=== PATIENT | female | born 1990 | race Two or more races ===

== ENCOUNTER 2017-07-14 20:42 | Emergency (ER) | payer MEDICAID ==
[~2017-07-14] VITALS: Ht 139.7 cm; Wt 56.7 kg
[~2017-07-14 20:42] MED LIST: IBUPROFEN600 MG ORAL; KEFLEX500 MG ORAL; NORCO 5-325 TA1 EACH ORAL; ROBAXIN-750750 MG PO
[2017-07-14] MEDS ORDERED: NKM (20:54)
--- NOTE | 2017-07-14 21:33 | Emergency Room Report ---
History of Present Illness General Chief Complaint: Headache Source: Patient Present Illness HPI Patient presents with headache. She states this is like her usual migraine. She's had this for 4 days. She's had to call into her work. She's been vomiting. She had an aura at the beginning and now has some periods where she has some blurry vision. She's felt feverish but no documented temperature. She denies any cough sore throat diarrhea or dysuria. Her last period was 2 days ago. She's been taking Tylenol at home without any help. In the past she' s received morphine. Pain is 10/10, frontal and top of head, constant and not radiating. No fevers, weakness, trauma, thunderclap, neck stiffness/pain. Allergies: Coded Allergies: No Known Allergies (Unverified , 07/08/16) Patient History Past Medical History: see triage record Social History: Denies: smoking Social History Narrative works Last Menstrual Period: 2 days ago Now: No : 4 Reviewed Nursing Documentation: PMH: Agreed, PSxH: Agreed Nursing Documentation-PMH Past Medical History: No Stated History Review of Systems All Other Systems: negative except mentioned in HPI Physical Exam Vital Signs Date Time Temp Pulse Resp B/P (MAP) Pulse Ox O2 Delivery O2 Flow Rate FiO2 07/14/17 20:51 97.9 77 18 104/70 98 Sp02 EP Interpretation: reviewed, normal General Appearance: well appearing, no apparent distress, GCS 15 Head: normocephalic Eyes: bilateral eye normal inspection, bilateral eye PERRL, bilateral eye EOMI ENT: moist mucus membranes Neck: supple Respiratory: lungs clear, normal breath sounds Cardiovascular #1: regular rate, rhythm Cardiovascular #2: 2+ radial (R) Gastrointestinal: normal inspection, normal bowel sounds, non tender, no mass, non-distended Musculoskeletal: back normal, gait/station normal, normal range of motion Neurologic: alert, oriented x3, control panel tester III-XII nml as tested, motor strength/tone normal, DTRs symmetric, sensory intact, cerebellar normal, normal gait, speech normal Psychiatric: depressed affect Skin: normal inspection, warm/dry Medical Decision Making Diagnostic Impression: Primary Impression: Migraine Qualified Codes: G43.109 - Migraine with aura, not intractable, without status migrainosus ER Course Presents with headache. Differential includes migraine, tension, bowel syndrome. Exam is against meningitis. Also the no red flag symptoms. Patient states this is her usual migraine. She requested IV treatment. She will be given Reglan and Benadryl. Pain resolved after meds. (Uncertain why nursing documentation reports 07/04 as patient states pain resolved.) Patient stable for outpatient observation and treatment. Last Vital Signs Date Time Temp Pulse Resp B/P (MAP) Pulse Ox O2 Delivery O2 Flow Rate FiO2 07/14/17 22:59 97.9 18 110/70 98 07/14/17 20:51 77 Status: improved Disposition: HOME, SELF-CARE Condition: Improved Scripts Ibuprofen* (MOTRIN*) 600 Mg Tablet 600 MG ORAL Q6H Y for For Pain, #16 TAB Prov: Jonny Martinez M.D. 07/14/17 Ondansetron Odt* (ZOFRAN ODT*) 4 Mg Tab.rapdis 4 MG ORAL Q8HR Y for Nausea & Vomiting, #4 TAB 1 Refill Prov: Jonny Martinez M.D. 07/14/17 Hydrocodone Bit/Acetaminophen 5-325* (NORCO 5-325*) 1 Each Tablet 1 TAB ORAL Q6H Y for For Pain, #6 TAB 0 Refills Prov: Jonny Martinez M.D. 07/14/17 Referrals: NOT CHOSEN STEF/,REFERRING (PCP) Jonny Martinez M.D. Jul 14, 2017 21:33
[2017-07-14] MEDS ORDERED: Metoclopramide 10mg/2ml Inj IVP ONE (21:45)
[2017-07-14] MEDS ORDERED: DiphenhydrAMINE 50mg/ml Inj IVP ONE (21:45)
[2017-07-14] MEDS ORDERED: Ketorolac 30mg Inj IV ONE (21:45)
[2017-07-14] MEDS ORDERED: IBUPROFEN600 MG ORAL (22:43)
[2017-07-14] MEDS ORDERED: NORCO 5-325 TA1 EACH ORAL (22:43)
[2017-07-14] MEDS ORDERED: ZOFRAN ODT4 MG ORAL (22:43)
[2017-07-14 22:59] VITALS: BP 110/70
== END 2017-07-14 23:03 | disposition home or self-care (01) ==
LOC: EMR 21:19
DX: G43.909 Migraine, unspecified, not intractable, without status migrainosus (principal); R51 Headache; R11.10 Vomiting, unspecified
CPT/HCPCS: 96374; 96375; 99284; J1200; J1885; J2765

== ENCOUNTER 2018-01-16 20:42 | Emergency (ER) | payer SELFPAY ==
[~2018-01-16] VITALS: Ht 139.7 cm; Wt 59.0 kg
[~2018-01-16 20:42] MED LIST changes: +NKM; +ZOFRAN ODT4 MG ORAL
[2018-01-16 20:54] VITALS: BP 101/61
--- NOTE | 2018-01-16 21:15 | Emergency Room Report ---
History of Present Illness General Chief Complaint: Abdominal Pain Source: Patient Present Illness HPI Patient presents with complaints of suprapubic discomfort along with epigastric burning sensation Patient reports that 2 weeks ago she had an ultrasound which showed that she was 6 weeks Denies any vomiting or diarrhea denies any fevers or chills pain in the suprapubic area is discomfort 3 out of 10 and epigastric is 2 out of 10 burning Denies any flank pain denies any bleeding or spotting patient had some spotting 3 weeks ago however none since then Patient's a Allergies: Coded Allergies: No Known Allergies (Unverified , 07/08/16) Patient History Past Medical History: see triage record Pertinent Family History: none Last Menstrual Period: 11/25/2017 Now: Yes - 8 weeks : 4 Para: 2 Reviewed Nursing Documentation: PMH: Agreed; PSxH: Agreed Review of Systems All Other Systems: negative except mentioned in HPI Physical Exam Vital Signs Date Time Temp Pulse Resp B/P (MAP) Pulse Ox O2 Delivery O2 Flow Rate FiO2 01/16/18 20:43 98.0 78 16 101/61 97 Room Air 98.1 Sp02 EP Interpretation: reviewed, normal General Appearance: well appearing, no apparent distress Head: normocephalic, atraumatic Eyes: bilateral eye PERRL, bilateral eye EOMI ENT: hearing grossly normal, normal pharynx, TMs + canals normal, uvula midline Neck: full range of motion, supple, no meningismus, no bony tend Respiratory: lungs clear, normal breath sounds, no rhonchi, no respiratory distress, no retraction, no accessory muscle use Cardiovascular #1: normal peripheral pulses, regular rate, rhythm, no edema, no gallop, no JVD, no murmur Gastrointestinal: normal bowel sounds, non tender - I cannot palpate an obvious gravid abdomen, fairly early in the , however nontender on palpation, soft, no mass, no organomegaly, non-distended, no guarding, no hernia , no pulsatile mass, no rebound Genitourinary: no CVA tenderness Musculoskeletal: normal inspection Neurologic: oriented x3, responsive, network operations lead III-XII nml as tested, motor strength/ tone normal, sensory intact Psychiatric: mood/affect normal Skin: normal color, no rash, warm/dry, palpation normal Lymphatic: normal inspection, no adenopathy Medical Decision Making Diagnostic Impression: Primary Impression: Threatened Additional Impression: UTI (urinary tract infection) ER Course Multiple differentials including but not limited to, ectopic , UTI, cholecystitis entertained patient is complex requiring blood work and imaging study ultrasound shows heart tones at 170 which were mildly elevated Otherwise intrauterine patient's Urine sample does show evidence of UTI Patient is provided antibiotics Beta hCG is mildly elevated compared to usual and will require close outpatient follow-up for any abnormal pathology Labs Test 01/16/18 20:47 01/16/18 21:05 Urine Color Pale yellow Urine Appearance Clear Urine pH 6 (4.5-8.0) Urine Specific [place] 1.020 (1.005-1.035) Urine Protein Negative (NEGATIVE) Urine Glucose (UA) Negative (NEGATIVE) Urine Ketones Negative (NEGATIVE) Urine Occult Blood 2+ (NEGATIVE) Urine Nitrite Positive (NEGATIVE) Urine Bilirubin Negative (NEGATIVE) Urine Urobilinogen Normal MG/DL (0.0-1.0) Urine Leukocyte Esterase 1+ (NEGATIVE) Urine RBC 2-4 /HPF (0 - 2) Urine WBC 2-4 /HPF (0 - 2) Urine Squamous Epithelial Cells Few /LPF (NONE/OCC) Urine Bacteria Moderate /HPF (NONE) White Blood Count 10.6 K/UL (4.8-10.8) Red Blood Count 4.24 M/UL (4.20-5.40) Hemoglobin 13.5 G/DL (12.0-16.0) Hematocrit 38.8 % (37.0-47.0) Mean Corpuscular Volume 92 FL (80-99) Mean Corpuscular Hemoglobin 31.9 PG (27.0-31.0) Mean Corpuscular Hemoglobin Concent 34.9 G/DL (32.0-36.0) Red Cell Distribution Width 11.5 % (11.6-14.8) Platelet Count 263 K/UL (150-450) Mean Platelet Volume 6.6 FL (6.5-10.1) Neutrophils (%) (Auto) 72.6 % (45.0-75.0) Lymphocytes (%) (Auto) 17.7 % (20.0-45.0) Monocytes (%) (Auto) 7.3 % (1.0-10.0) Eosinophils (%) (Auto) 1.5 % (0.0-3.0) Basophils (%) (Auto) 0.8 % (0.0-2.0) Sodium Level 137 MMOL/L (136-145) Potassium Level 3.4 MMOL/L (3.5-5.1) Chloride Level 103 MMOL/L (98-107) Carbon Dioxide Level 24 MMOL/L (21-32) Anion Gap 10 mmol/L (5-15) Blood Urea Nitrogen 8 mg/dL (7-18) Creatinine 0.7 MG/DL (0.55-1.30) Estimat Glomerular Filtration Rate > 60 mL/min (>60) Glucose Level 89 MG/DL (74-106) Calcium Level 9.0 MG/DL (8.5-10.1) Total Bilirubin 0.2 MG/DL (0.2-1.0) Aspartate Amino Transf (AST/SGOT) 15 U/L (15-37) Alanine Aminotransferase (ALT/SGPT) 17 U/L (12-78) Alkaline Phosphatase 59 U/L (46-116) Total Protein 7.3 G/DL (6.4-8.2) Albumin 3.6 G/DL (3.4-5.0) Globulin 3.7 g/dL Albumin/Globulin Ratio 1.0 (1.0-2.7) Lipase 166 U/L (73-393) Human Chorionic Gonadotropin, Quant 731709 mIU/mL (1-6) CT/MRI/US Diagnostic Results CT/MRI/US Diagnostic Results : Impression Pelvic ultrasound: Intrauterine heart tone at 170, refer to report for full specific Last Vital Signs Date Time Temp Pulse Resp B/P (MAP) Pulse Ox O2 Delivery O2 Flow Rate FiO2 01/16/18 20:54 98.1 78 16 101/61 97 Room Air 98.1 Status: improved Disposition: HOME, SELF-CARE Condition: Improved Scripts Nitrofurantoin Monohyd/M-Cryst* (MACROBID 100 MG*) 100 Mg Capsule 100 MG ORAL EVERY 12 HOURS for 7 Days, CAP Prov: Luci Wilkes DO 01/16/18 Additional Instructions: Patient is provided with the discharge instructions notified to follow up with primary doctor in the next 2-3 days otherwise return to the er with any worsening symptoms. Please note that this report is being documented using [employer] medical technology. This can lead to erroneous entry secondary to incorrect interpretation by the dictating instrument. Luci Wilkes DO Jan 16, 2018 21:15
[2018-01-16 21:17] LABS: BASOPHILS % (AUTO) 0.8 % (0.0-2.0); EOSINOPHILS % (AUTO) 1.5 % (0.0-3.0); HEMATOCRIT 38.8 % (37.0-47.0); HEMOGLOBIN 13.5 G/DL (12.0-16.0); LYMPHOCYTES % (AUTO) 17.7 % (20.0-45.0); MEAN CORPUSCULAR VOLUME 92 FL (80-99); MONOCYTES % (AUTO) 7.3 % (1.0-10.0); NEUTROPHILS % (AUTO) 72.6 % (45.0-75.0); PLATELET COUNT 263 K/UL (150-450); RED BLOOD COUNT 4.24 M/UL (4.20-5.40); RED CELL DISTRIBUTION WIDTH 11.5 % (11.6-14.8); WHITE BLOOD COUNT 10.6 K/UL (4.8-10.8)
[2018-01-16 21:17] LABS: APPEARANCE,URINE CLEAR; BILIRUBIN, URINE NEGATIVE (NEGATIVE); COLOR,URINE PALE YELLOW; GLUCOSE, URINE (UA) NEGATIVE (NEGATIVE); KETONES,URINE NEGATIVE (NEGATIVE); LEUKOCYTE ESTERASE ,URINE 1+ (NEGATIVE); NITRITE,URINE POSITIVE (NEGATIVE); PH,URINE 6 (4.5-8.0); PROTEIN,URINE NEGATIVE (NEGATIVE); UROBILINOGEN,URINE NORMAL MG/DL (0.0-1.0)
[2018-01-16 21:35] LABS: ANION GAP 10 mmol/L (5-15); BLOOD UREA NITROGEN 8 mg/dL (7-18); CARBON DIOXIDE 24 MMOL/L (21-32); CHLORIDE 103 MMOL/L (98-107); CREATININE 0.7 MG/DL (0.55-1.30); POTASSIUM 3.4 MMOL/L (3.5-5.1); SODIUM 137 MMOL/L (136-145)
[2018-01-16 21:43] LABS: ALANINE AMINOTRANSFERASE 17 U/L (12-78); ALBUMIN 3.6 G/DL (3.4-5.0); ALKALINE PHOSPHATASE 59 U/L (46-116); ASPARTATE AMINO TRANSFERASE 15 U/L (15-37); BILIRUBIN,TOTAL 0.2 MG/DL (0.2-1.0)
[2018-01-16] MEDS ORDERED: NITROFURANTOIN100 M2 ORAL (23:39)
[2018-01-16 23:47] VITALS: BP 111/63
--- NOTE | 2018-01-17 12:01 | Diagnostic Imaging Report ---
Indication: Pain. Positive test. Last menstrual period 11/25/2017 Technique: Grayscale and duplex Doppler imaging of the pelvis performed utilizing a transabdominal scan and endovaginal scan. Comparison: None Findings: An intrauterine gestational sac is identified. A yolk sac and pole are identified. [place]-rump length is measured to be 16.8 mm. heart rate identified at 171 bpm; heart motion noted on cine loops. There are some anechoic well-circumscribed structures in the cervix, likely nabothian cysts. The right ovary measures 2.9 x 1.8 x 2.3 cm/6.3 cc. The left ovary measures 2.7 x 1.1 x 2.6 cm/3.9 cc. Color and Doppler flow to the bilateral ovaries is recommended. There is no free pelvic fluid. IMPRESSION: Single live intrauterine with gestational age by ultrasound approximately 8 weeks one day. heart tones 171 bpm, slightly elevated. Clinical correlation and follow-up exam recommended. No evidence of adnexal mass. No evidence to suggest ovarian torsion. No free pelvic fluid. This corresponds with the [facility] preliminary report.
== END 2018-01-16 23:47 | disposition home or self-care (01) ==
LOC: EMR 21:27
DX: O20.0 Threatened abortion (principal); O23.41 Unspecified infection of urinary tract in pregnancy, first trimester; Z3A.08 8 weeks gestation of pregnancy
CPT/HCPCS: 36415; 76801; 76805; 80053; 81003; 83690; 84702; 85025; 86850; 86900; 86901; 87086; 99284

== ENCOUNTER 2019-09-08 15:53 | Emergency (ER) | payer MEDICAID ==
[~2019-09-08] VITALS: Ht 137.2 cm; Wt 61.2 kg
[~2019-09-08 15:53] MED LIST changes: +LEVAQUIN500 MG ORAL; +NITROFURANTOIN100 M2 ORAL
[2019-09-08 16:00] VITALS: BP 94/63
--- NOTE | 2019-09-08 16:09 | NUR ---
ED Nurse Note: PT WALKED IN DUE TO COUGHING, CHILLS AND FEVER X 1 WEEK.TYLENOL TAKEN AROUND 10AM THIS MORNING. 98.3 F IN TRIAGE. AAO X4 ,AMBULATORY WITH NON LABORED BREATHING. DRY COUGHING NOTED.
--- NOTE | 2019-09-08 16:14 | Emergency Room Report ---
History of Present Illness General Chief Complaint: Flu Like Symptoms Source: Patient Present Illness HPI 29-year-old female with no significant medical history here complaining of 1 week of sore throat, cough and congestion. Patient complains of minor phlegm production, and some wheezing. Has not taken medication for symptom relief. Patient reports that at the beginning of onset of her symptoms patient has fever and chills. Denies abdominal pain, nausea vomiting, recent travel, sick contact. Denies urinary symptoms. Denies chest pain, shortness of breath, palpitation, no other associated symptoms. 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 Immunizations: UTD Reviewed Nursing Documentation: PMH: Agreed; PSxH: Agreed Nursing Documentation-PMH Past Medical History: No History, Except For Review of Systems All Other Systems: negative except mentioned in HPI Physical Exam Vital Signs Date Time Temp Pulse Resp B/P (MAP) Pulse Ox O2 Delivery O2 Flow Rate FiO2 09/08/19 16:00 98.2 86 16 94/63 95 Room Air Sp02 EP Interpretation: reviewed, normal General Appearance: no apparent distress, alert, GCS 15, non-toxic Head: normocephalic, atraumatic Eyes: bilateral eye normal inspection, bilateral eye PERRL ENT: TMs + canals normal, uvula midline, nasal congestion, tonsillar swelling, pharyngeal erythema, tonsillar exudate Neck: full range of motion, supple, thyroid normal, no meningismus, no bony tend, supple/symm/no masses Respiratory: chest non-tender, lungs clear, normal breath sounds, no rhonchi, no wheezing, speaking full sentences Cardiovascular #1: normal inspection, no murmur Gastrointestinal: normal bowel sounds, non tender, soft, non-distended, no guarding, no rebound Genitourinary: adnexa normal Musculoskeletal: back normal Neurologic: alert, motor strength/tone normal Skin: no rash Lymphatic: adenopathy - Anterior cervical Medical Decision Making PA Attestation All my diagnosis and treatment plans were reviewed ad discussed with my supervising physician Dr. Cabral Diagnostic Impression: Primary Impression: Strep pharyngitis ER Course 29-year-old female with no significant medical history here complaining of 1 week of sore throat, cough and congestion. Patient complains of minor phlegm production, and some wheezing. Has not taken medication for symptom relief. Patient reports that at the beginning of onset of her symptoms patient has fever and chills. Denies abdominal pain, nausea vomiting, recent travel, sick contact. Denies urinary symptoms. Denies chest pain, shortness of breath, palpitation, no other associated symptoms. Ddx considered but are not limited to: strep pharyngitis, URI, tonsillitis, peritonsillar abscess, influneza Vital signs: are WNL, pt. is afebrile H&PE are most consistent with: Strep pharyngitis ORDERS: Azithromycin, Phenergan, albuterol ED INTERVENTIONS: None required at this time. DISCHARGE: At this time pt. is stable for d/c to home. Will provide printed patient care instructions, and any necessary prescriptions. Care plan and follow up instructions have been discussed with the patient prior to discharge. Patient to follow-up with her primary care provider, if worsening symptoms return to the emergency room Last Vital Signs Date Time Temp Pulse Resp B/P (MAP) Pulse Ox O2 Delivery O2 Flow Rate FiO2 09/08/19 16:07 79 20 Room Air 09/08/19 16:00 98.2 94/63 (73) 95 Disposition: HOME, SELF-CARE Condition: Stable Scripts Albuterol Sulfate (VENTOLIN HFA) 18 Gm Hfa.aer.ad 2 PUFFS INH EVERY 6 HOURS, #18 GM 0 Refills Prov: Ariella Amin 09/08/19 Promethazine Hcl (PROMETHAZINE HCL*) 6.25 Mg/5 Ml Syrup 5 ML ORAL Q6H, #120 ML 0 Refills Prov: Ariella Amin 09/08/19 Azithromycin* (ZITHROMAX*) 250 Mg Tablet 250 MG ORAL DAILY, #6 TAB 0 Refills Take two tables once daily for 1 day, then one tablet once daily for 4 days. Prov: Ariella Amin 09/08/19 Patient Instructions: Pharyngitis Additional Instructions: Take medication as directed, follow-up with your primary care provider, if worsening symptoms return to the emergency room. Ariella Amin Sep 08, 2019 16:14
[2019-09-08] MEDS ORDERED: ZITHROMAX250 MG ORAL (16:15)
[2019-09-08] MEDS ORDERED: VENTOLIN HFA18 GM INH (16:15)
[2019-09-08] MEDS ORDERED: PROMETHAZI6.25 MG/1 ORAL (16:15)
[2019-09-08 16:24] VITALS: BP 94/63
--- NOTE | 2019-09-08 16:25 | NUR ---
ER DISCHARGE NOTE: Patient is cleared to be discharged per ERMD, pt is aox4, on room air, with stable vital signs. pt was given dc and prescription instructions, pt was able to verbalize understanding, pt is able to ambulate with steady gait. pt took all belongings.
== END 2019-09-08 17:00 | disposition home or self-care (01) ==
LOC: EMR 16:30
DX: J02.0 Streptococcal pharyngitis (principal); Z79.3 Long term (current) use of hormonal contraceptives
CPT/HCPCS: 99282

== ENCOUNTER 2020-02-06 12:44 | Emergency (ER) | payer MEDICAID ==
[~2020-02-06] VITALS: Ht 137.2 cm; Wt 62.6 kg
[2020-02-06 12:19] VITALS: BP 103/65
[~2020-02-06 12:44] MED LIST changes: +BACTRIM DS TAB1 EAC1 ORAL; +PROMETHAZI6.25 MG/1 ORAL; +VENTOLIN HFA18 GM INH; +ZITHROMAX250 MG ORAL
--- NOTE | 2020-02-06 12:44 | Emergency Room Report ---
History of Present Illness General Chief Complaint: Skin Rash/Abscess Source: Patient Present Illness HPI Disclaimer: Please note that this report is being documented using [employer] technology. This can lead to erroneous entry secondary to incorrect interpretation by the dictating instrument. HPI: 29-year-old female presents for evaluation of a rash over the left lower leg. Present for a few days. Patient cannot recall whether or not she was bit by anything but does shave her legs regularly. She noted a bump and swelling which then opened and was draining some purulent material. She notes no surrounding redness that has been spreading over the past 2 days. [place] warm last night and oral temperatures were 99. Denies vomiting, diarrhea, cough, URI symptoms, dysuria, hematuria or other changes in her health. Allergies: Coded Allergies: No Known Allergies (Unverified , 02/06/20) COVID-19 Screening Contact w/high risk pt: No Recent Travel to affected area: No Experienced COVID-19 symptoms?: Yes COVID-19 symptoms experienced: Fever (T>100.4F or >38C) COVID-19 Testing performed DONATIONS ATTENDANT: No Patient History Last Menstrual Period: 01/03/2020 Now: No Review of Systems All Other Systems: negative except mentioned in HPI Physical Exam Vital Signs Date Time Temp Pulse Resp B/P (MAP) Pulse Ox O2 Delivery O2 Flow Rate FiO2 02/06/20 12:19 97.9 102 20 103/65 (78) 99 Room Air General: Awake and alert, no acute distress HEENT: NC/AT. EOMI. Resp: Normal work of breathing Skin: I there is a 4 x 4 centimeter area of erythema with a small pustule in the center draining small amount of purulent material. No fluctuance. Mild induration. No active bleeding. MSK: Normal tone and bulk. Moving all extremities. No obvious deformity. Neuro: Awake and alert. Mentating appropriately Medical Decision Making Diagnostic Impression: Primary Impression: Cellulitis ER Course 21-year-old female presents for evaluation of purulent drainage the left calf. Present consistent with a small abscess and surrounding cellulitis. May have been a folliculitis from shaving her legs or insect bite/occult skin injury. She is afebrile with stable vital signs otherwise. A small amount of purulent material was expressed but cannot identify a deep space abscess that requires incision or drainage. Will be started on Bactrim. Follow-up on an outpatient basis and instructed to return to the emergency department new or worsening symptoms. She understands and agrees with this treatment plan. Last Vital Signs Date Time Temp Pulse Resp B/P (MAP) Pulse Ox O2 Delivery O2 Flow Rate FiO2 02/06/20 12:19 97.9 102 20 103/65 99 Room Air Disposition: HOME, SELF-CARE Condition: Stable Scripts Trimethoprim/Sulfamethoxazole 160/800* (BACTRIM DS TABLET*) 1 Each Tablet 1 TAB ORAL Q12H for 7 Days, #14 TAB 0 Refills Prov: Tay Geller MD 02/06/20 Referrals: [facility] Patient Instructions: Abscess Additional Instructions: Please follow-up with your primary care doctor in the next 1 to 3 days to discuss this emergency department visit and for reevaluation. If you have any new or worsening symptoms please return to the emergency department for reevaluation. Please note that this report is being documented using [employer] technology. This can lead to erroneous entry secondary to incorrect interpretation by the dictating instrument. Tay Geller MD February 06, 2020 12:44
[2020-02-06] MEDS ORDERED: HYDROcodone/Acetamin 5/325 tab ORAL ONE (12:45)
[2020-02-06] MEDS ORDERED: HYDROcodone/Acetamin 5/325 tab ONE (12:47)
[2020-02-06 12:56] VITALS: BP 112/75
== END 2020-02-06 12:56 | disposition home or self-care (01) ==
LOC: EDBD 12:44 → EMR 12:50
DX: L03.116 Cellulitis of left lower limb (principal); R50.9 Fever, unspecified
CPT/HCPCS: 99282